=== PATIENT | male | born 1980 | race Caucasian/White ===

== ENCOUNTER 2017-08-28 22:42 | Emergency (ER) | payer OTHER ==
[~2017-08-28] VITALS: Ht 180.3 cm; Wt 116.0 kg
[2017-08-28 22:56] VITALS: BP 130/94
[2017-08-28] MEDS ORDERED: PERCOCET 5/31 TABLET PO (23:25)
== END 2017-08-28 23:42 | disposition home or self-care (01) ==
LOC: RME 22:42 → EME 22:42 → RME 23:42
DX: S20.212A Contusion of left front wall of thorax, initial encounter (principal); W20.8XXA Other cause of strike by thrown, projected or falling object, initial encounter; Y92.411 Interstate highway as the place of occurrence of the external cause; J45.909 Unspecified asthma, uncomplicated; I50.9 Heart failure, unspecified; Z98.1 Arthrodesis status; F17.200 Nicotine dependence, unspecified, uncomplicated
CPT/HCPCS: 71046; 99281; 99283